=== PATIENT | female | born 1985 | race African-American/Black ===

== ENCOUNTER 2019-05-27 20:11 | Emergency (ER) | payer OTHER ==
[~2019-05-27] VITALS: Ht 154.9 cm; Wt 59.0 kg
[2019-05-27 20:37] VITALS: BP 126/91
[2019-05-27] MEDS ORDERED: NAPROXEN 500 MG TABLET PO STA (20:49)
[2019-05-27] MEDS ORDERED: HYDROcodone/APAP 5/325MG 1 TAB TABLET PO ONE (21:00)
[2019-05-27] MEDS ORDERED: BACITRACIN TOPICAL OINT PACKET. TP ONE (21:00)
[2019-05-27] MEDS ORDERED: BACI1PAC4 TP (21:37)
[2019-05-27] MEDS ORDERED: BACI28.43 TP (21:37)
[2019-05-27] MEDS ORDERED: NAPR-514 PO (21:37)
[2019-05-27] MEDS ORDERED: HYDR-3164 PO (21:37)
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
== END 2019-05-27 21:48 | disposition home or self-care (01) ==
LOC: ER 20:11
DX: T22.112A Burn of first degree of left forearm, initial encounter (principal); X10.2XXA Contact with fats and cooking oils, initial encounter; Y93.G3 Activity, cooking and baking; Y92.511 Restaurant or cafe as the place of occurrence of the external cause; Y99.0 Civilian activity done for income or pay
CPT/HCPCS: 16000; 99284-25